=== PATIENT | female | born 1980 ===

== ENCOUNTER 2024-06-16 12:33 | Outpatient (OUT) | payer OTHER, SELFPAY ==
--- NOTE | 2024-06-16 12:36 | US_ITS ---
[address] [address] Patient Name: ALICE MUNIZ MRN: [id number] date: 1980 Sex: F Assigned Patient Location: [facility] Current Patient Location: LAB Accession/Order Number: [id number] Exam Date: 06/16/2024 12:36 Report Date: 06/16/2024 14:09 At the request of: ESTEPHANIA JAIN Procedure: US OB transvaginal EXAMINATION: US OB transvaginal HISTORY: MISSED MENSES COMPARISON: No relevant comparison available. FINDINGS: Transvaginal images Anechoic echogenicity identified within the endometrial cavity consistent with a gestational sac. Mean sac diameter 2.93 cm, 7 weeks 6 days Yolk sac: 7.1 mm pole: 6.9 mm, 6 weeks 4 days Heart rate: Not observed The uterus is normal, anteverted, retroflexed The ovaries are not visualized Clinical age: 8 weeks 6 days Clinical JUS: 01/12/2025 Ultrasound age: 6 weeks 4 days Ultrasound JUS: 02/05/2025 US/US OB transvaginal IMPRESSION: Parra intrauterine gestation measuring 6 weeks 4 days. No cardiac activity identified possibly related to early gestation. Follow-up recommended Electronically authenticated by: GINA SHERMAN Date: 06/16/2024 14:09
== END 2024-06-16 12:34 | disposition home or self-care (01) ==
LOC: NOMS 12:33
PROVIDERS: PCP Internal Medicine; Visit Provider Obstetrics & Gynecology
DX: Z34.91 Encounter for supervision of normal pregnancy, unspecified, first trimester (principal); N92.6 Irregular menstruation, unspecified
CPT/HCPCS: 36415; 76817; 84702

== ENCOUNTER 2024-06-16 13:28 | Outpatient (OUT) | payer OTHER, SELFPAY ==
[2024-06-16 16:03] LABS: HCG Quantitative 44754 mIU/mL
== END 2024-06-16 13:29 | disposition home or self-care (01) ==
LOC: LAB 13:31
PROVIDERS: PCP Internal Medicine; Visit Provider Obstetrics & Gynecology
DX: N92.6 Irregular menstruation, unspecified (principal)
CPT/HCPCS: 36415; 84702

== ENCOUNTER 2024-06-18 12:31 | Outpatient (RCR) | payer OTHER, SELFPAY ==
[2024-06-18 13:44] LABS: HCG Quantitative 36539 mIU/mL
== END 2024-06-22 08:24 | disposition home or self-care (01) ==
LOC: LAB 12:31
PROVIDERS: PCP Internal Medicine; Visit Provider Obstetrics & Gynecology
DX: N92.6 Irregular menstruation, unspecified (principal)
CPT/HCPCS: 36415; 84702

== ENCOUNTER 2024-06-23 09:59 | Outpatient (OUT) | payer OTHER, SELFPAY ==
--- NOTE | 2024-06-23 10:01 | US_ITS ---
[place] [id number] Patient Name: ALICE MUNIZ MRN: [id number] date: 1980 Sex: F Assigned Patient Location: [facility] Current Patient Location: LAB Accession/Order Number: [id number] Exam Date: 06/23/2024 10:02 Report Date: 06/23/2024 12:17 At the request of: ESTEPHANIA JAIN Procedure: US OB transvaginal EXAMINATION: US OB transvaginal HISTORY: VIABILITY COMPARISON: Ultrasound OB transvaginal 06/16/2024 FINDINGS: GESTATIONAL SAC: Present YOLK SAC: Absent POLE: Suspected. CARDIAC: Slow heart rate, 79 beats per minutes versus uterine vessel. UTERUS: Retroverted, limiting evaluation. OVARIES: Right: Not seen. Left: Normal. CERVIX: 4.4 cm in length and closed. CUL-DE-SAC: Normal. OTHER: None. AGE BY LMP: 9 weeks 6 days JUS BY LMP: 01/12/2025 AGE BY US CRL: 7 weeks 2 days JUS BY US CRL: 02/07/2025 US/US OB transvaginal IMPRESSION: 1. Evaluation is very limited due to patient body habitus and retroverted position of uterus. 2. Intrauterine gestational sac and suspected pole, which by measurements has grown appropriately in the interval since prior study. Electronically authenticated by: MORRO MENDENHALL Date: 06/23/2024 12:17
--- OUTSIDE RECORDS SUMMARY | 2024-06-23 10:19 | XMS_ITS | CCD ---
Author Organization [facility] Care Team Providers Care Executive Office Manager Name Role Phone Helen Roy Unavailable MARLY SANTOS Attending Unavailable MARLY SANTOS Referring Unavailable MARLY SANTOS Primary Care Unavailable MARLY SANTOS Referring Unavailable MARLY SANTOS Primary Care Unavailable MORRO BENITO Attending Unavailable MORRO BENITO Attending Unavailable MORRO BENITO Attending Unavailable Medications Current Medications Medication Drug Class(es) Dates Sig (Normalized) Sig (Original) cephalexin 500 mg oral capsule (1 source) Cephalosporin Antibacterial Start: 08-07-2023 take 1 capsule by mouth every eight hours Cephalexin 500 MG 1 capsule Orally tid for 7 days Jul, Active levothyroxine sodium 0.2 mg oral tablet (2 sources) l-Thyroxine Synthroid 200 MCG Oral for 30 Days Active take 1 tablet by hugo th once daily in the morning Levothyroxine Sodium 25 MCG take 1 table t by mouth every morning Oral for 30 Days Not-Taking Problems Problem Classification Problem Date Documented Da te Episodic/Chronic Other nutritional; endocrine; and metabolic disorders (1 source) Morbid (severe) obesity due to excess calories; Translations: [Morbid (severe) obesity due to excess calories] Onset: 02-20-2021 Chronic Other nutritional; endocrine; and metabolic disorders (1 source) Body mass index (BMI) 45.0-49.9, adult; Translations: [Body mass index (BMI) 45.0-49.9, adult] Onset: 02-20-2021 Chronic Other skin disorders (1 source) Ingrowing nail Episodic Thyroid disorders (2 sources) Hypothyroidism, unspecified; Translations: [Hypothyroidism, unspecified] Onset: 02-20-2021 Chronic Unclassified (1 source) Foreign body sensation, throat; Translations: [Foreign body sensation, throat] Onset: 04-15-2024 Unclassified (1 source) medication check Onset: 04-15-2024 Results Test Name Value Interpretation Reference Range Facil ity THYROID PROFILEon 04-15-2024 Free T4 [Mass/Vol] 0.90 ng/dL Normal 0.61-1.60 [facility] Comment on above: Performed By: #### T HYR #### [facility] ([id number]) [address], [address] [place] [address] TSH 6.31 uIU/mL High 0.49-4.67 [facility] Comment on above: Performed By: #### T HYR #### [facility] ([id number]) [address], [address] [place] [address] Vital Signs Date Time Vital Sign Value Performing Clinician Facility 08-07-2023 13:50-0400 Body height 171.45 cm Helen Morillomond Other [facility] Other 08-07-2023 13:50-0400 Body mass index (BMI) [Ratio] 53.17 kg/m2 Helen Morillomond Other [facility] Other 08-07-2023 13:50-0400 Body temperature 97.6 [degF] Helen Morillomond Other [facility] Other 08-07-2023 13:50-0400 Body weight 156.31 kg Helen Morillomond Other [facility] Other 08-07-2023 13:50-0400 Diastolic blood pressure 68 mm[Hg] Helen Morillomond Other [facility] Other 08-07-2023 13:50-0400 Respiratory rate 18 /min Helen Morillomond Other [facility] Other 08-07-2023 13:50-0400 SaO2% (BldA) [Mass fraction] 99 % Helen Roy Other [facility] Other 08-07-2023 13:50-0400 Systolic blood pressure 110 mm[Hg] Helen Roy Other [facility] Other Encounters Encounter Date Encounter Type Care Provider Facility Start: 06-02-2024 End: 06-02-2024 ambulatory MORRO BENITO Not Available Start: 04-15-2024 End: 04-16-2024 ambulatory [facility] Start: 04-15-2024 End: 04-15-2024 ambulatory [facility] Start: 03-17-2024 End: 03-17-2024 ambulatory MORRO Herrera RUSHER Not Available Start: 10-19-2023 End: 10-19-2023 ambulatory MORRO Herrera RUSHER Not Available Start: 08-07-2023 End: 08-07-2023 ambulatory Helen Roy Other [facility] Other Start: 08-07-2023 Office outpatient ne w 10 minutes Helen Manuela [facility] Mickey Payers Date Payer Category Payer Unknown [id number] 1980 Unknown [id number] 2.16.8 [id number] 1980 Unknown [id number] 2.16.8 [id number] 1980 Unknown [id number] 2.16.84 [id number] 1980 Unknown [id number] 2.16.84 [id number] 1980 Unknown [id number] Social History Date Type Detail Facility Unknown if ever smoked [facility] Other Sex Assigned At Sex Assigned At Bir th [facility] Other Evaluation note 08-07-2023 Note Date & Type Note Facility 08-07-2023 Evaluation note Encounter Date Diagnosis Assessment Notes Jul, Ingrown nail (ICD-10 - L60.0) Ingrown toenail home care material was printed Drink plenty fluids, get plenty of rest. Take the cephalexin as prescribed until gone. Soak your foot in warm soapy water 2-3 times a day. Apply an antibiotic ointment and Band-Aid to the toe daily. Follow-up with your family physician on Thursday for recheck as scheduled. Take Tylenol or Motrin as needed for aches, pains [facility] Other Summary Purpose Family History No Family History Records FoundNo Family History Records FoundNo Family History Records Found Advance Directives No Advanced Directives Records FoundNo Advanced Directives Records FoundNo Advanced Directives Records Found Additional Source Comments REASON FOR VISIT (unrecogniz ed section and content) RIGHT GREAT TOE PAIN, ERYTHE MATOUS INFORMATION SOURCE (unrecogn ized section and content) DATE CREATED AUTHOR 04/17/2024 [facility] DATE CREATED AUTHOR AUTHOR'S ORGANIZ ATION 04/17/2024 [facility] DATE CREATED AUTHOR AUTHOR'S ORGANIZ ATION 06/08/[address] [facility] EPIC FOR RECORDS PERTAINING TO PATIENTS WHO ARE OR HAVE BEEN ENROLLED IN A CHEMICAL DEPENDENCY/SUBSTANCEABUSE PROGRAM, SOME INFORMATION MAY BE OMITTED. This clinical summary was aggregated from multiple sources. Caution should be exercised in using it in the provision of clinical care. This summary normalizes information from multiple sources, and as a consequence, information in this document may materially change the coding, format and clinical context of patient data. In addition, data may be omitted in some cases. CLINICAL DECISIONS SHOULD BE BASED ON THE PRIMARY CLINICAL RECORDS. [employer] provides no warranty or guarantee of the accuracy or completeness of information in this document.
== END 2024-06-23 10:00 | disposition home or self-care (01) ==
LOC: NOMS 10:00
PROVIDERS: PCP Internal Medicine; Visit Provider Obstetrics & Gynecology
DX: Z34.91 Encounter for supervision of normal pregnancy, unspecified, first trimester (principal); Z3A.09 9 weeks gestation of pregnancy
CPT/HCPCS: 76817

== ENCOUNTER 2024-06-23 11:52 | Outpatient (OUT) | payer OTHER, SELFPAY ==
--- OUTSIDE RECORDS SUMMARY | 2024-06-23 11:55 | XMS_ITS | CCD ---
Author Organization [facility] Care Team Providers Care World History Teacher Name Role Phone Helen Roy Unavailable MARLY [...] Free T4 [Mass/Vol] 0.90 ng/dL Normal 0.61-1.60 [facility] Comment on above: Performed By: #### T HYR #### [facility] ([id number]) [address], [address] [place] [address] TSH 6.31 uIU/mL High 0.49-4.67 [facility] Comment on above: Performed By: #### T HYR #### [facility] ([id number]) [address] [place] [address] Vital Signs Date Time Vital Sign Value Performing Clinician Facility 08-07-2023 13:50-0400 Body height 171.45 cm Helen Morillomond Other [facility] Other 08-07-2023 13:50-0400 Body mass index (BMI) [Ratio] 53.17 kg/m2 Helen Morillomond Other [facility] Other 08-07-2023 13:50-0400 Body temperature 97.6 [degF] Helen Morillomond Other [facility] Other 08-07-2023 13:50-0400 Body weight 156.31 kg Helen Morillomond Other [facility] Other 08-07-2023 13:50-0400 Diastolic blood pressure 68 mm[Hg] Helen Morillomond Other [facility] Other 08-07-2023 13:50-0400 Respiratory rate 18 /min Helen Morillomond Other [facility] Other 08-07-2023 13:50-0400 SaO2% (BldA) [Mass fraction] 99 % Helen Roy Other [facility] Other 08-07-2023 13:50-0400 Systolic blood pressure 110 mm[Hg] Helen Roy Other [facility] Other Encounters Encounter Date Encounter Type Care Provider Facility Start: 06-02-2024 End: 06-02-2024 ambulatory MORRO BENITO Not Available Start: 04-15-2024 End: 04-16-2024 ambulatory [facility] Start: 04-15-2024 End: 04-15-2024 ambulatory [facility] Start: 03-17-2024 End: 03-17-2024 ambulatory MORRO Herrera RUSHER Not Available Start: 10-19-2023 End: 10-19-2023 ambulatory MORRO Herrera RUSHER Not Available Start: 08-07-2023 End: 08-07-2023 ambulatory Helen Roy Other [facility] Other Start: 08-07-2023 Office outpatient ne w 10 minutes Helen Manuela [facility] [place] Payers Date Payer Category Payer Unknown [id number] 1980 Unknown [id number] 2.16.8 [id number] 1980 Unknown [id number] 2.16.8 [id number] 1980 Unknown [id number] 2.16.84 [id number] 1980 Unknown [id number] 2.16.84 [id number] 1980 Unknown [id number] Social History Date Type Detail Facility Unknown if ever smoked [facility] Other Sex Assigned At Sex Assigned At Bir th [facility] Other Evaluation note 08-07-2023 Note Date & [...] or Motrin as needed for aches, pains [facility] Other Summary Purpose Family History No Family History Records FoundNo Family History Records FoundNo Family History Records Found Advance Directives No Advanced Directives Records FoundNo Advanced Directives Records FoundNo Advanced Directives Records Found Additional Source Comments REASON FOR VISIT (unrecogniz ed section and content) RIGHT GREAT TOE PAIN, ERYTHE MATOUS INFORMATION SOURCE (unrecogn ized section and content) DATE CREATED AUTHOR 04/17/2024 [facility] DATE CREATED AUTHOR AUTHOR'S ORGANIZ ATION 04/17/2024 [facility] DATE CREATED AUTHOR AUTHOR'S ORGANIZ ATION 06/08/2024 [facility] EPIC FOR RECORDS PERTAINING TO [...] BE BASED ON THE PRIMARY CLINICAL RECORDS. [employer] provides no warranty or guarantee of the accuracy or completeness of information in this document.
[2024-06-23 14:24] LABS: HCG Quantitative 19940 mIU/mL
== END 2024-06-23 11:53 | disposition home or self-care (01) ==
LOC: LAB 11:52
PROVIDERS: PCP Internal Medicine; Visit Provider Obstetrics & Gynecology
DX: Z34.91 Encounter for supervision of normal pregnancy, unspecified, first trimester (principal); Z3A.09 9 weeks gestation of pregnancy
CPT/HCPCS: 36415; 76817; 84702

== ENCOUNTER 2024-06-25 12:17 | Outpatient (OUT) | payer OTHER, SELFPAY ==
--- OUTSIDE RECORDS SUMMARY | 2024-06-25 12:22 | XMS_ITS | CCD ---
Author Organization [facility] Care Team Providers Care Siebel Crm Developer Name Role Phone Helen Roy Unavailable MARLY [...] Free T4 [Mass/Vol] 0.90 ng/dL Normal 0.61-1.60 [facility] Comment on above: Performed By: #### T HYR #### [facility] ([id number]) [address], [address] [place] [address] TSH 6.31 uIU/mL High 0.49-4.67 [facility] Comment on above: Performed By: #### T HYR #### [facility] ([id number]) [address] [place] [address] Vital Signs Date Time Vital Sign Value Performing Clinician Facility 08-07-2023 13:50-0400 Body height 171.45 cm Helen Morillomond Other [facility] Other 08-07-2023 13:50-0400 Body mass index (BMI) [Ratio] 53.17 kg/m2 Helen Morillomond Other [facility] Other 08-07-2023 13:50-0400 Body temperature 97.6 [degF] Helen Morillomond Other [facility] Other 08-07-2023 13:50-0400 Body weight 156.31 kg Helen Morillomond Other [facility] Other 08-07-2023 13:50-0400 Diastolic blood pressure 68 mm[Hg] Helen Morillomond Other [facility] Other 08-07-2023 13:50-0400 Respiratory rate 18 /min Helen Morillomond Other [facility] Other 08-07-2023 13:50-0400 SaO2% (BldA) [Mass fraction] 99 % Helen Roy Other [facility] Other 08-07-2023 13:50-0400 Systolic blood pressure 110 mm[Hg] Helen Roy Other [facility] Other Encounters Encounter Date Encounter Type Care Provider Facility Start: 06-02-2024 End: 06-02-2024 ambulatory MORRO BENITO Not Available Start: 04-15-2024 End: 04-16-2024 ambulatory [facility] Start: 04-15-2024 End: 04-15-2024 ambulatory [facility] Start: 03-17-2024 End: 03-17-2024 ambulatory MORRO Herrera RUSHER Not Available Start: 10-19-2023 End: 10-19-2023 ambulatory MORRO Herrera RUSHER Not Available Start: 08-07-2023 End: 08-07-2023 ambulatory Helen Roy Other [facility] Other Start: 08-07-2023 Office outpatient ne w 10 minutes Helen Manuela [facility] Urgent Care [place] Payers Date Payer Category Payer Unknown [id number] 1980 Unknown [id number] 2.16.8 [id number] 1980 Unknown [id number] 2.16.8 [id number] 1980 Unknown [id number] 2.16.84 [id number] 1980 Unknown [id number] 2.16.84 [id number] 1980 Unknown [id number] .[id number] Social History Date Type Detail Facility Unknown if ever smoked [facility] Other Sex Assigned At Sex Assigned At Bir th [facility] Other Evaluation note 08-07-2023 Note Date & [...] or Motrin as needed for aches, pains [facility] Other Summary Purpose Family History No Family History Records FoundNo Family History Records FoundNo Family History Records Found Advance Directives No Advanced Directives Records FoundNo Advanced Directives Records FoundNo Advanced Directives Records Found Additional Source Comments REASON FOR VISIT (unrecogniz ed section and content) RIGHT GREAT TOE PAIN, ERYTHE MATOUS INFORMATION SOURCE (unrecogn ized section and content) DATE CREATED AUTHOR 04/17/2024 [facility] DATE CREATED AUTHOR AUTHOR'S ORGANIZ ATION 04/17/2024 [facility] DATE CREATED AUTHOR AUTHOR'S ORGANIZ ATION 06/08/[address] [facility] EPIC FOR RECORDS PERTAINING TO PATIENTS [...] BE BASED ON THE PRIMARY CLINICAL RECORDS. [employer] provides no warranty or guarantee of the accuracy or completeness of information in this document.
[2024-06-25 14:05] LABS: HCG Quantitative 15662 mIU/mL
== END 2024-06-25 12:18 | disposition home or self-care (01) ==
LOC: LAB 12:19
PROVIDERS: PCP Internal Medicine; Visit Provider Obstetrics & Gynecology
DX: N92.6 Irregular menstruation, unspecified (principal)
CPT/HCPCS: 36415; 84702

== ENCOUNTER 2024-07-07 09:40 | Outpatient (OUT) | payer OTHER, SELFPAY ==
--- NOTE | 2024-07-07 09:43 | US_ITS ---
[address] [address] Patient Name: ALICE MUNIZ MRN: [id number] date: 1980 Sex: F Assigned Patient Location: [facility] Current Patient Location: Accession/Order Number: [id number] Exam Date: 07/07/2024 09:47 Report Date: 07/11/2024 07:41 At the request of: DAPHNEY STOREY Procedure: US pelvis transvaginal EXAMINATION: US pelvis transvaginal HISTORY: VIABILITYDECREASING HCG LEVELS COMPARISON: 06/23/2024 FINDINGS: Transvaginal images No intrauterine or ectopic is observed. The uterus is grossly normal, anteverted, anteflexed The endometrium measures 1.3 cm thick. The right ovary was not visualized The left ovary is normal measuring 3.6 x 2.0 x 1.8 cm US/US pelvis transvaginal IMPRESSION: No intrauterine or ectopic observed on the current exam, the right ovary was not visualized Electronically authenticated by: GINA SHERMAN Date: 07/11/2024 07:41
--- OUTSIDE RECORDS SUMMARY | 2024-07-07 09:43 | XMS_ITS | CCD ---
Author Organization [facility] Care Team Providers Care Service Order Taker Name Role Phone Helen Roy Unavailable MARLY [...] Free T4 [Mass/Vol] 0.90 ng/dL Normal 0.61-1.60 [facility] Comment on above: Performed By: #### T HYR #### [facility] ([id number]) [address], [address] [place] [address] TSH 6.31 uIU/mL High 0.49-4.67 [facility] Comment on above: Performed By: #### T HYR #### [facility] ([id number]) [address] [place] [address] Vital Signs Date Time Vital Sign Value Performing Clinician Facility 08-07-2023 13:50-0400 Body height 171.45 cm Helen Morillomond Other [email or web address] Other 08-07-2023 13:50-0400 Body mass index (BMI) [Ratio] 53.17 kg/m2 Helen Morillomond Other [email or web address] Other 08-07-2023 13:50-0400 Body temperature 97.6 [degF] Helen Morillomond Other [email or web address] Other 08-07-2023 13:50-0400 Body weight 156.31 kg Helen Morillomond Other [email or web address] Other 08-07-2023 13:50-0400 Diastolic blood pressure 68 mm[Hg] Helen Morillomond Other [email or web address] Other 08-07-2023 13:50-0400 Respiratory rate 18 /min Helen Morillomond Other [email or web address] Other 08-07-2023 13:50-0400 SaO2% (BldA) [Mass fraction] 99 % Helen Roy Other [email or web address] Other 08-07-2023 13:50-0400 Systolic blood pressure 110 mm[Hg] Helen Roy Other [email or web address] Other Encounters Encounter Date Encounter Type Care Provider Facility Start: 06-02-2024 End: 06-02-2024 ambulatory MORRO BENITO Not Available Start: 04-15-2024 End: 04-16-2024 ambulatory [facility] Start: 04-15-2024 End: 04-15-2024 ambulatory [facility] Start: 03-17-2024 End: 03-17-2024 ambulatory MORRO Herrera RUSHER Not Available Start: 10-19-2023 End: 10-19-2023 ambulatory MORRO Herrera RUSHER Not Available Start: 08-07-2023 End: 08-07-2023 ambulatory Helen Roy Other [email or web address] Other Start: 08-07-2023 Office outpatient ne w 10 minutes Helen Manuela [facility] Urgent [facility] [place] Payers Date Payer Category Payer Unknown [id number] 1980 Unknown [id number] 2.16.8 [id number] 1980 Unknown [id number] 2.16.8 [id number] 1980 Unknown [id number] 2.16.84 [id number] 1980 Unknown [id number] 2.16.84 [id number] 1980 Unknown [id number] .[id number] Social History Date Type Detail Facility Unknown if ever smoked [email or web address] Other Sex Assigned At Sex Assigned At Bir th [email or web address] Other Evaluation note 08-07-2023 Note Date & [...] or Motrin as needed for aches, pains [email or web address] Other Summary Purpose Family History No Family History Records FoundNo Family History Records FoundNo Family History Records Found Advance Directives No Advanced Directives Records FoundNo Advanced Directives Records FoundNo Advanced Directives Records Found Additional Source Comments REASON FOR VISIT (unrecogniz ed section and content) RIGHT GREAT TOE PAIN, ERYTHE MATOUS INFORMATION SOURCE (unrecogn ized section and content) DATE CREATED AUTHOR 04/17/2024 [facility] DATE CREATED AUTHOR AUTHOR'S ORGANIZ ATION 04/17/2024 [facility] DATE CREATED AUTHOR AUTHOR'S ORGANIZ ATION 06/08/2024 [facility] EPIC FOR RECORDS PERTAINING TO PATIENTS [...] BE BASED ON THE PRIMARY CLINICAL RECORDS. [email or web address] provides no warranty or guarantee of the accuracy or completeness of information in this document.
== END 2024-07-07 09:41 | disposition home or self-care (01) ==
LOC: NOMS 09:40
PROVIDERS: PCP Internal Medicine; Visit Provider Physician Assistant
DX: O03.9 Complete or unspecified spontaneous abortion without complication (principal)
CPT/HCPCS: 76830